=== PATIENT | female | born 1960 | race Caucasian/White ===

== ENCOUNTER → 2023-02-19 13:11 | Outpatient (CLI) | payer MEDICAID, SELFPAY ==
--- NOTE | 2023-02-19 13:14 | XR_ITS ---
FINAL REPORT CLINICAL HISTORY: Left foot pain and swelling FINDINGS: LEFT FOOT Three views demonstrate no acute fracture or dislocation. There is a moderate hallux valgus deformity. Moderate degenerative changes are seen at the 1st MTP joint. No acute soft tissue abnormality is seen. Mild calcaneal spurs are noted IMPRESSION: Degenerative changes with no acute bony abnormality. Reviewed, Interpreted and Dictated by Ricky Henson MD Transcribed by Julianne Lancaster Authenticated and [facility]
--- NOTE | 2023-02-19 13:14 | XR_ITS ---
FINAL REPORT CLINICAL HISTORY: Right ankle pain FINDINGS: RIGHT ANKLE Three views show no evidence of acute displaced fracture or dislocation of the visualized bony architecture. The joint spaces appear normal. IMPRESSION: Unremarkable exam. Reviewed, Interpreted and Dictated by Ricky Henson MD Transcribed by Julianne Lancaster Authenticated and [facility]
--- NOTE | 2023-02-19 13:14 | XR_ITS ---
FINAL REPORT CLINICAL HISTORY: Left ankle pain FINDINGS: LEFT ANKLE Three views show no evidence of acute displaced fracture or dislocation of the visualized bony architecture. There are corticated calcifications along the medial malleolus compatible with old ligamentous or bony avulsion injury. There are no significant degenerative changes IMPRESSION: Evidence of remote trauma along the medial ankle mortise. Reviewed, Interpreted and Dictated by Ricky Henson MD Transcribed by Julianne Lancaster Authenticated and . [facility]
--- NOTE | 2023-02-19 13:14 | XR_ITS ---
FINAL REPORT CLINICAL HISTORY: Pain and edema FINDINGS: RIGHT FOOT Three views demonstrate no acute fracture or dislocation. There is a moderate hallux valgus deformity. Moderate degenerative changes are seen at the 1st MTP joint. No acute soft tissue abnormality is seen. Mild calcaneal spurs are noted IMPRESSION: Degenerative changes with no acute bony abnormality. Reviewed, Interpreted and Dictated by Ricky Henson MD Transcribed by Julianne Lancaster Authenticated and [facility]
== END ==
PROVIDERS: PCP Nurse Practitioner Family; Visit Provider Nurse Practitioner Family
DX: R60.9 Edema, unspecified (principal); M25.571 Pain in right ankle and joints of right foot; M25.572 Pain in left ankle and joints of left foot
CPT/HCPCS: 73610; 73630

== ENCOUNTER → 2023-03-13 13:09 | Outpatient (CLI) | payer MEDICAID, SELFPAY ==
[2023-03-13 13:33] LABS: Basophils % 0.4 % (0.1-2.0); Eosinophils # 0.1 K/mm3 (0.0-0.4); Hemoglobin 13.8 g/dL (12.2-16.2); Lymphocytes # 1.7 K/mm3 (0.7-4.5); Lymphocytes % 24.3 % (10-50); Mean Corpuscular HGB Conc 32.8 g/dL (31.8-35.4); Mean Corpuscular Hemoglobin 31.3 pg (27.0-31.2); Mean Corpuscular Volume 95.4 fl (81-99); Mean Platelet Volume 8.1 fl (7.4-10.4); Monocytes # 0.5 K/mm3 (0.1-1.0); Monocytes % 6.5 % (1.7-9.3); Neutrophils # 4.7 K/mm3 (1.8-7.8); Neutrophils % 66.8 % (37.0-80.0); Platelet Count 234 K/mm3 (142-424); Red Cell Distribution Width 12.6 % (11.5-17.5)
[2023-03-13 14:13] LABS: Alanine Aminotransferase 90 U/L (12-78); Albumin Level 4.2 g/dl (3.5-5.0); Albumin/Globulin Ratio 1.5 (1.1-1.8); Alkaline Phosphatase 132 U/L (38-126); Anion Gap 15.1 mEq/L (5-15); Aspartate Amino Transferase 84 U/L (14-36); Bilirubin,Total 0.5 mg/dl (0.2-1.3); Blood Urea Nitrogen 18 mg/dl (7-17); Calcium 9.5 mg/dl (8.4-10.2); Carbon Dioxide 25 mmol/L (22.0-30.0); Chloride 107 mmol/L (98-107); Estimated Glomerular Filt Rate 38 ml/min (>60); GFR (African American) 46 ML/MIN (>60); Globulin 2.8 g/dL (1.3-3.2); Glucose 86 mg/dl (74-100); Potassium 5.1 mmoL/L (3.5-5.1); Sodium 142 mmol/L (136-145); Uric Acid 10.1 mg/dl (2.5-6.2)
[2023-03-13 14:18] LABS: C-Reactive Protein 6.9 mg/L (0-4)
[2023-03-13 15:05] LABS: Erythrocyte Sedimentation Rate 34 mm/hr (0-30)
[2023-03-21 18:08] LABS: 1,25 Dihydroxy Vitamin D 30 pg/mL (.); 1,25-Dihydroxy, Vitamin D-2 <10 pg/mL (.); 1,25-Dihydroxy, Vitamin D-3 30 pg/mL (.)
== END ==
PROVIDERS: PCP Nurse Practitioner Family; Visit Provider Nurse Practitioner Family
DX: R60.0 Localized edema (principal); L03.115 Cellulitis of right lower limb; E66.3 Overweight; Z68.30 Body mass index [BMI] 30.0-30.9, adult
CPT/HCPCS: 36415; 80053; 82652; 84550; 85025; 85651; 86140